=== PATIENT | female | born 1975 | race Caucasian/White ===

== ENCOUNTER 2021-02-26 07:30 | Emergency (ER) | payer OTHER ==
[2021-02-26] MEDS ORDERED: MEDROL 4MG DOSEP4 MG PO (10:01)
== END 2021-02-26 10:08 | disposition home or self-care (01) ==
LOC: FER 07:30
DX: J06.9 Acute upper respiratory infection, unspecified (principal); R11.0 Nausea; R19.7 Diarrhea, unspecified; F17.210 Nicotine dependence, cigarettes, uncomplicated; Z91.040 Latex allergy status; Z20.822 Contact with and (suspected) exposure to COVID-19
CPT/HCPCS: 71046; U0002

== ENCOUNTER 2021-07-30 16:53 | Emergency (ER) | payer OTHER ==
[~2021-07-30 16:53] MED LIST: MEDROL 4MG DOSEP4 MG PO
== END 2021-07-30 20:46 | disposition home or self-care (01) ==
LOC: FER 16:53
DX: R05 Cough (principal); R51.9 Headache, unspecified; R11.0 Nausea; R68.83 Chills (without fever); F17.210 Nicotine dependence, cigarettes, uncomplicated; Z91.040 Latex allergy status; Z20.822 Contact with and (suspected) exposure to COVID-19
CPT/HCPCS: 71045; U0002